=== PATIENT | female | born 1960 | race Caucasian/White ===

== ENCOUNTER → 2022-08-16 | Day surgery (SDC) | payer BC, OTHER ==
[~2022-08-16] MED LIST: ASPIRIN PO; DIAZEPAM PO; EFFEXOR PO; GLYCOPYRROLATE INJ 0.2 MG/ML VIAL ONE; HYOSCYAMINE SULFATE 0.5 MG/ML INJ ONE; LIDOCAINE HCL 2% LOCAL INJ 5 ML SDV VIAL INJ ONE; MIDAZOLAM HCL 2 MG/2 ML VIAL ONE; OMEPRAZOLE40 MG PO; ONDANSETRON HCL INJ 2MG/ML 2ML 2 MG/ML VIAL ONE; POVIDONE IODINE 0.05% 0.05 % ML PO ONE; PROPOFOL IV EMULSION 10 MG/ML 20 ML VIAL ONE
[2022-08-16 11:15] VITALS: BP 150/88
== END | disposition home or self-care (01) ==
LOC: OR 08:55
PROVIDERS: ATTEND Internal Medicine Gastroenterology
DX: K21.00 Gastro-esophageal reflux disease with esophagitis, without bleeding (principal); D12.4 Benign neoplasm of descending colon; K62.1 Rectal polyp; K29.50 Unspecified chronic gastritis without bleeding; K52.9 Noninfective gastroenteritis and colitis, unspecified; K62.89 Other specified diseases of anus and rectum; K31.A0 Gastric intestinal metaplasia, unspecified; K64.8 Other hemorrhoids; R03.0 Elevated blood-pressure reading, without diagnosis of hypertension; Z71.89 Other specified counseling; Z71.3 Dietary counseling and surveillance; F17.210 Nicotine dependence, cigarettes, uncomplicated; Z71.6 Tobacco abuse counseling; Z01.810 Encounter for preprocedural cardiovascular examination; Z79.82 Long term (current) use of aspirin; Z86.69 Personal history of other diseases of the nervous system and sense organs
CPT/HCPCS: 43239; 45380; 45384; 45385; 83630; 83993; 87045; 87177; 87324; 87328; 87449; 93005; C9113; J1980; J2001; J2250; J2405; J2704; 45378